=== PATIENT | female | born 1985 | race Caucasian/White ===

== ENCOUNTER 2017-04-26 16:56 | Emergency (ER) | payer SELFPAY ==
--- NOTE | 2017-04-26 18:10 | RAD ---
THREE VIEWS RIGHT FOOT: Date: 04-26-17 History: Worsening right lateral ankle pain and foot pain after stepping off curb and twisting ankle and foot. FINDINGS: Lisfranc joint is normally aligned. There is no evidence of a fracture, dislocation, or other osseou s abnormality involving the right foot. IMPRESSION: No acute osseous abnormality. POS: [facility]
--- NOTE | 2017-04-26 18:11 | RAD ---
THREE VIEWS RIGHT ANKLE: Date: 04-26-17 History: Right ankle injury. Patient has right lateral ankle pain and foot pain after stepping off a curb and twisting ankle and foot. FINDINGS: The ankle mortise is congruent. No fracture or dislocation is seen. No other osseous abnormality. IMPRESSION: No acute osseous abnormality right foot. POS: [facility]
== END 2017-04-26 18:18 | disposition home or self-care (01) ==
LOC: SCSER 16:56
DX: S86.311A Strain of muscle(s) and tendon(s) of peroneal muscle group at lower leg level, right leg, initial encounter (principal); F90.9 Attention-deficit hyperactivity disorder, unspecified type; Z79.899 Other long term (current) drug therapy; X50.1XXA Overexertion from prolonged static or awkward postures, initial encounter